=== PATIENT | male | born 1965 | race Caucasian/White ===

== ENCOUNTER 2022-04-11 12:19 | Emergency (ER) | payer MEDICAID ==
[~2022-04-11] VITALS: Ht 175.3 cm; Wt 81.0 kg
[2022-04-11 22:09] VITALS: BP 169/92
== END 2022-04-11 22:10 ==
LOC: ER 12:19
DX: H54.7 Unspecified visual loss (principal); E11.9 Type 2 diabetes mellitus without complications
CPT/HCPCS: 82962; 99285

== ENCOUNTER 2022-12-14 09:20 | Emergency (ER) | payer MEDICAID ==
[~2022-12-14] VITALS: Ht 167.6 cm; Wt 79.0 kg
[2022-12-14 09:31] VITALS: BP 138/81
== END 2022-12-14 13:06 | disposition home or self-care (01) ==
LOC: ER 09:20
DX: M79.661 Pain in right lower leg (principal); E11.9 Type 2 diabetes mellitus without complications; I10 Essential (primary) hypertension; I73.9 Peripheral vascular disease, unspecified; Z89.421 Acquired absence of other right toe(s)
CPT/HCPCS: 93971; 99284